=== PATIENT | female | born 1995 | race Two or more races ===

== ENCOUNTER 2017-05-23 00:10 | Observation (INO) | payer SELFPAY ==
[~2017-05-23] VITALS: Ht 160 cm; Wt 99.8 kg
[2017-05-23] MEDS ORDERED: LEVO50TA7 PO (01:05)
[2017-05-23] MEDS ORDERED: PREN-96 PO (01:05)
[2017-05-23] MEDS ORDERED: MET10LQ PO (01:05)
[2017-05-23] MEDS ORDERED: CITA10TA59 PO (01:05)
[2017-05-23 02:10] LABS: Basophils # (auto) 0 uL; Basophils % (auto) 0.5 % (0.0-2.0); Eosinophils # (auto) 0.2 uL; Eosinophils % (auto) 2.9 % (0.0-7.0); Hematocrit 29.2 % (36.0-46.0); Hemoglobin 10.4 g/dL (12.2-16.2); Lymphocytes # (auto) 3.5 uL; Mean Corpuscular Hemoglobin 33.6 pg (28.0-32.0); Mean Corpuscular Hgb Conc. 35.6 g/dL (32.0-36.0); Mean Corpuscular Volume 94.4 fL (80.0-100.0); Mean Platelet Volume 10.6 fL (6.9-10.8); Monocytes # (auto) 0.8 uL; Monocytes % (auto) 9.6 % (0.0-12.0); Neutrophils # (auto) 3.8 uL; Nucleated Red Blood Cells % 0.1 %; Platelet Count (auto) 129 10^3/uL (140-450); Red Cell Distribution Width 13.7 % (11.8-14.3); White Blood Cell 8.4 10^3/uL (4.4-10.8)
[2017-05-23 02:11] LABS: Urine Bilirubin Negative (Negative); Urine Blood Negative /uL (Negative); Urine Color Straw (Yellow); Urine Glucose Normal (Normal); Urine Ketone Negative (Negative); Urine Nitrite Negative (Negative); Urine RBC <1 /hpf (0 - 4); Urine Urobilinogen Normal (Negative); Urine pH 6.5 (5.0-8.0)
[2017-05-23] MEDS ORDERED: RANI300T3 PO (02:15)
[2017-05-23 02:24] LABS: INR 0.95 (0.9-1.15); Partial Thromboplastin Time 27.4 sec (22.64-33.71); Prothrombin Time 10.4 sec (9.37-12.3)
[2017-05-23 02:40] LABS: Albumin 2.5 g/dL (3.4-5.0); BUN/Creatinine Ratio 10.9; Bilirubin, Total 0.2 mg/dL (0.2-1.0); Calcium 8.4 mg/dL (8.5-10.1); Potassium 3.7 mmol/L (3.5-5.1); Total Protein 5.7 g/dL (6.4-8.2); Uric Acid 3.5 mg/dL (2.6-6.0)
[2017-05-23] MEDS ORDERED: ACETAMINOPHEN 325 MG TAB PO ONE ×2 (02:56→03:00)
== END 2017-05-23 03:10 | disposition home or self-care (01) | DRG 781 ==
LOC: LDRP 00:10
PROVIDERS: ADMIT Specialist; ATTEND Specialist
DX: O26.893 Other specified pregnancy related conditions, third trimester (principal); H53.8 Other visual disturbances; R51 Headache; R11.0 Nausea; Z3A.34 34 weeks gestation of pregnancy
CPT/HCPCS: 36415; 59025; 80053; 81001; 81002; 84550; 85025; 85362; 85610; 85730; G0378